=== PATIENT | female | born 1975 | race Asian ===

== ENCOUNTER 2019-02-27 08:40 | Outpatient (CLI) | payer OTHER ==
--- NOTE | 2019-02-27 09:22 | MMO ---
Bilateral MAMMO Bilat Screen [facility]. CLINICAL HISTORY: Patient is 43 years old and is seen for screening. The patient has a history of left Ultrasound Guided Core Biopsy in December, - benign. VIEWS: The views performed were: bilateral craniocaudal with tomosynthesis and bilateral mediolateral oblique with tomosynthesis. FILMS COMPARED: The present examination has been compared to prior imaging studies performed at [facility] on 12/11/2015, 12/15/2015 and 12/24/2015. MAMMOGRAM FINDINGS: The breasts are extremely dense, which may lower the sensitivity of mammography. Finding 1: There are stable calcifications seen in both breasts. Finding 2: There is a stable biopsy clip and a stable post operative change seen in the left breast. There are no suspicious masses, suspicious calcifications, or new areas of architectural distortion. IMPRESSION: THERE IS NO MAMMOGRAPHIC EVIDENCE OF MALIGNANCY. A ROUTINE FOLLOW-UP MAMMOGRAM IN 1 YEAR IS RECOMMENDED. THE RESULTS OF THIS EXAM WERE SENT TO THE PATIENT. ACR BI-RADS Category 2 - Benign finding MAMMOGRAPHY NOTE: 1. A negative mammogram report should not delay a biopsy if a dominant of clinically suspicious mass is present. 2. Approximately 10% to 15% of breast cancers are not detected by mammography. 3. Adenosis and dense breasts may obscure an underlying neoplasm.
== END 2019-02-27 08:41 | disposition home or self-care (01) ==
LOC: BICMAMMO 08:40
PROVIDERS: ATTEND Family Medicine
DX: Z12.31 Encounter for screening mammogram for malignant neoplasm of breast (principal)
CPT/HCPCS: 77063; 77067

== ENCOUNTER 2019-03-30 08:43 | Emergency (ER) | payer OTHER ==
[2019-03-30 10:02] LABS: HIV (1/2) Antibody/Antigen Non-Reactive (NonReactive); HIV 1/2 INDEX 0.19 S/CO (<1.00); Hep C IgG Ab Non-Reactive (NonReactive)
[2019-03-30 10:39] LABS: HBSAB Concentration 1631.97 mIU/mL
[2019-03-30 10:40] LABS: Hep B Surf AB Reactive (NonReactive)
== END 2019-03-30 09:43 | disposition home or self-care (01) ==
LOC: ERS 08:43
DX: S60.947A Unspecified superficial injury of left little finger, initial encounter (principal); Z77.21 Contact with and (suspected) exposure to potentially hazardous body fluids; W46.1XXA Contact with contaminated hypodermic needle, initial encounter
CPT/HCPCS: 36415; 86706; 86803; 87389; 99283

== ENCOUNTER 2020-11-10 13:13 | Emergency (ER) | payer OTHER ==
[~2020-11-10 13:13] MED LIST: Iopamidol-370 76% 500 ML 1 ML ONE
[2020-11-10] MEDS ORDERED: Acetaminophen 500 MG TAB ONE (14:27)
[2020-11-10 14:51] LABS: #Basophils 0.1 thou/uL (0.0-0.2); #Lymphocytes 0.5 thou/uL (1.20-3.40); #Monocytes 0.1 thou/uL (0.11-0.59); #Neutrophils 4.9 thou/uL (1.40-6.50); %Basophils 1.5 % (0.0-1.0); %Lymphocytes 8.7 % (21.0-51.0); %Monocytes 1.9 % (0.0-10.0); %Neutrophils 87.8 % (42.0-75.0); Mean Corpuscular HGB CONC 32.2 g/dL (32.0-36.0); Mean Corpuscular Hemoglobin 20.1 pg (27.0-31.0); Mean Corpuscular Volume 62.3 fL (78.0-98.0); Mean Platelet Volume 10.7 fL (7.4-10.4); Platelet Count 234 thou/uL (130-400); RBC Distribution Width 12.9 % (11.5-14.5); Red Blood Cell (RBC) Count 5.48 mill/uL (4.20-5.40); White Blood Cell (WBC) Count 5.6 thou/uL (4.8-10.8)
[2020-11-10 15:09] LABS: MDiff Complete? YES; Microcytosis MODERATE=15-30 cells (100X) (0-5/hpf); Ovalocytes SLIGHT = 2-5 cells (100X) (0-1/hpf); Platelet Morphology Comment Appears Adequate; Polychromasia SLIGHT = 2-3 cells (100X) (0-2/hpf); Reflex for Review?? NO; Schistocytes SLIGHT = 2-5 cells (100X) (0-1/hpf); Target Cells SLIGHT = 2-5 cells (100X) (0-1/hpf); Tear Drops SLIGHT = 2-5 cells (100X) (0-1/hpf)
[2020-11-10 15:10] LABS: ALT (SGPT) 20 U/L (8-55); AST (SGOT) 33 U/L (5-34); Albumin 3.6 g/dL (3.5-5.0); Alkaline Phosphatase 61 U/L (40-110); Anion Gap 15 mmol/L (10-20); BUN (Urea Nitrogen) 10 mg/dL (7.0-18.7); Bilirubin, Total 0.3 mg/dL (0.2-1.2); Calc. Creatinine Clearance 0 mL/min (70-130); Calcium 7.8 mg/dL (7.8-10.44); Carbon Dioxide 25 mmol/L (22-29); Chloride 102 mmol/L (98-107); Globulin 3.7 g/dL (2.4-3.5); Glucose 126 mg/dL (70-105); Potassium 3.5 mmol/L (3.5-5.1); Protein, Total 7.3 g/dL (6.0-8.3); Sodium 138 mmol/L (136-145)
--- NOTE | 2020-11-10 15:10 | RAD ---
CHEST 1 VIEW: Date: 11/10/2020 HISTORY: COVID-positive, worsening shortness of breath, headache. COMPARISON: 11/09/2020. FINDINGS: There are persistent patchy bilateral alveolar, interstitial, and ground-glass opacity changes, somew hat more focally prominent in the perihilar regions, right greater than left. Evidence for bilateral COVID pneumonia. No significant pleural effusion. No cardiomegaly. IMPRESSION: Persistent possibly slightly more confluent parenchymal changes in the perihilar regions, somewhat mo re focally prominent in the right perihilar region. Continue short-term follow-up. POS: RRE
[2020-11-10 16:19] LABS: BHCG - Serum Negative (NEGATIVE); Pregs Control Background? CLEAR/WHITE (CLR/WHITE); Pregs Control Bar Appear? YES (CONTROL BAR)
--- NOTE | 2020-11-10 17:05 | CT ---
CTA Angio Chest W WO Con 11/10/2020 4:45 PM Indication: History of Covid positive diagnosis with cough and fever Technique: Multiple CTA images were obtained of the thorax with IV contrast. 3-D rendering: MIP cameron nstructed images were created and reviewed. Comparison: No relevant prior studies available. Findings: Pulmonary arteries: Respiratory motion artifact slightly limits image detail. No definite central or segmental pulmonary embolus is evident. Heart and Aorta: Heart size is normal. There is an aberrant right subclavian artery. Mediastinum:Normal appearing. No enlarged lymph nodes. Lungs:There are prominent areas of patchy airspace consolidation within both lungs suspicious for mul tifocal pneumonia. This is most prominent within the posterior medial right lower lobe. Pleural space: Clear. Upper Abdomen: No acute abnormality. Osseous Structures: No acute osseous abnormality. Soft tissues:No abnormality. Other findings:None. Impression: 1. No central or segmental pulmonary embolus. 2. Multifocal pneumonia.
[2020-11-10] MEDS ORDERED: Ondansetron PF 4 MG/2 ML Vial ONE (17:16)
--- NOTE | 2020-11-29 16:13 | EKG ---
Test Reason : Blood Pressure : / mmHG Vent. Rate : 092 BPM Atrial Rate : 092 BPM P-R Int : 142 ms QRS Dur : 086 ms QT Int : 356 ms P-R-T Axes : 039 027 -06 degrees QTc Int : 440 ms Normal sinus rhythm Cannot rule out Anterior infarct , age undetermined Abnormal ECG Confirmed by TIANNA GARDINER DO ([id number]), story editor JAREK LU ([id number]) on 11/29/2020 4:13:17 PM Referred By: Confirmed By:TIANNA GARDINER DO
== END 2020-11-10 17:45 | disposition home or self-care (01) ==
LOC: ERS 13:13
DX: U07.1 COVID-19 (principal); D64.9 Anemia, unspecified
CPT/HCPCS: 36415; 71045; 71275; 80053; 84484; 84703; 85025; 85379; 93005; 96374; J2405; Q9967

== ENCOUNTER 2021-10-01 08:20 | Outpatient (CLI) | payer OTHER | END 2021-10-01 08:21 | disposition home or self-care (01) | LOC: BICMAMMO 08:20 | PROVIDERS: ATTEND Family Medicine | DX: Z12.31 Encounter for screening mammogram for malignant neoplasm of breast (principal); Z91.89 Other specified personal risk factors, not elsewhere classified | CPT/HCPCS: 77063; 77067 ==

== ENCOUNTER 2024-03-06 04:39 | Inpatient (IN) | payer BC ==
[2024-03-06] MEDS ORDERED: Morphine 4 MG/ML VIAL ONE (05:00)
[2024-03-06] MEDS ORDERED: Ondansetron PF 4 MG/2 ML Vial ONE (05:00)
[2024-03-06 05:20] LABS: #Basophils 0.06 10x3/uL (0.0-0.2); %Basophils 0.5 % (0.0-1.0); %Eosinophils 0.5 % (0.0-10.0); %Lymphocytes 13.4 % (21.0-51.0); %Monocytes 2.9 % (0.0-10.0); %Neutrophils 82.3 % (42.0-75.0); Hematocrit 33.9 % (36.0-47.0); Hemoglobin 10.8 g/dL (12.0-16.0); Mean Corpuscular HGB CONC 31.9 g/dL (32.0-36.0); Mean Corpuscular Hemoglobin 20.4 pg (27.0-31.0); Mean Corpuscular Volume 64.1 fL (78.0-98.0); Platelet Count 252 10x3/uL (130-400); RBC Distribution Width 15.3 % (11.5-14.5); Red Blood Cell (RBC) Count 5.29 mill/uL (4.20-5.40)
[2024-03-06 05:25] LABS: BHCG - Serum Negative (NEGATIVE); Pregs Control Background? CLEAR/WHITE (CLR/WHITE); Pregs Control Bar Appear? YES (CONTROL BAR)
[2024-03-06 05:37] LABS: Troponin I Less than 0.010 ng/mL (< 0.028)
[2024-03-06 05:39] LABS: ALT (SGPT) 13 U/L (8-55); AST (SGOT) 15 U/L (5-34); Albumin 3.8 g/dL (3.5-5.0); Alkaline Phosphatase 53 U/L (40-110); Anion Gap 15 mmol/L (10-20); BUN (Urea Nitrogen) 20 mg/dL (7.0-18.7); Bilirubin, Total 0.4 mg/dL (0.2-1.2); Calc. Creatinine Clearance 0 mL/min (70-130); Calcium 8.8 mg/dL (7.8-10.44); Carbon Dioxide 24 mmol/L (22-29); Chloride 105 mmol/L (98-107); Estimated GFR 83; Globulin 3.7 g/dL (2.4-3.5); Glucose 153 mg/dL (70-105); Lipase 36 U/L (8-78); Magnesium 1.8 mg/dL (1.6-2.6); Potassium 3.6 mmol/L (3.5-5.1); Protein, Total 7.5 g/dL (6.0-8.3); Sodium 140 mmol/L (136-145)
[2024-03-06] MEDS ORDERED: fentaNYL 50 mcg/mL 1 mL Vial ONE (06:23)
[2024-03-06] MEDS ORDERED: Ketorolac Tromethamine 30 MG (1 mL) VIAL ONE (06:52)
[2024-03-06] MEDS ORDERED: HYDROmorphone 0.5 MG/0.5 ML SYRINGE ONE (06:56)
[2024-03-06 07:24] LABS: Bilirubin Negative (Negative); Blood, Urine Large (Negative); Glucose, Urine (Dipstick) Negative (Negative); Ketone, Urine Negative (Negative); Leukocyte Trace (Negative); Nitrite Negative (Negative); Protein, Urine (Dipstick) Negative (Neg-Trace); Urobilinogen 0.2 mg/dL (Less than 2); pH, Urine 7.5 (5.0-9.0)
[2024-03-06 07:30] LABS: Bacteria/HPF None Seen HPF (None Seen)
[2024-03-06 07:33] LABS: Clarity Clear (Clear)
[2024-03-06 07:35] LABS: Urine Culture Reflex No No
[2024-03-06] MEDS ORDERED: Morphine 4 MG/ML VIAL SLOW IVP PRN (08:25)
[2024-03-06] MEDS ORDERED: Acetaminophen 650 MG Suppository PR PRN (08:29)
[2024-03-06] MEDS: Lactated Ringer's 1,000 ML IV SCH (08:35)
[2024-03-06] MEDS ORDERED: Ketorolac Tromethamine 30 MG (1 mL) VIAL IVP PRN (09:28)
[2024-03-06] MEDS: Tamsulosin HCl 0.4 MG CAP PO SCH (10:17)
[2024-03-06] MEDS ORDERED: Iopamidol-370 76% 500 ML MDV (1 ML CHARGE) ONE (10:49)
[2024-03-06] MEDS: Ondansetron PF 4 MG/2 ML Vial IVP PRN (11:06)
[2024-03-06] MEDS: Morphine 2 MG/ML VIAL SLOW IVP PRN (11:06)
[2024-03-06] MEDS ORDERED: HYDROcodone/Acetaminophen 5/325 mg Tablet PO PRN ×2 (13:24)
[2024-03-06] MEDS: Acetaminophen 325 MG TAB PO PRN (14:00)
[2024-03-06] MEDS: cefTRIAXone\\ROCEPHIN 1 GM in Sodium Chloride 0.9% 100 ML IVPB SCH (14:01)
[2024-03-06] MEDS: Metoclopramide HCl 10 MG (2 mL) VIAL IVP SCH (16:42)
[2024-03-06] MEDS: Sodium Chloride 0.9% 1,000 ML IV SCH ×2 (21:17→22:30)
[2024-03-06 21:42] LABS: Hematocrit 29.6 % (36.0-47.0); Hemoglobin 9.2 g/dL (12.0-16.0); Mean Corpuscular HGB CONC 31.1 g/dL (32.0-36.0); Mean Corpuscular Hemoglobin 20.3 pg (27.0-31.0); Mean Corpuscular Volume 65.3 fL (78.0-98.0); Mean Platelet Volume 10.7 fL (7.4-10.4); Platelet Count 138 10x3/uL (130-400); RBC Distribution Width 15.3 % (11.5-14.5); Red Blood Cell (RBC) Count 4.53 mill/uL (4.20-5.40)
[2024-03-06 21:55] LABS: Anion Gap 17 mmol/L (10-20); BUN (Urea Nitrogen) 19 mg/dL (7.0-18.7); Calc. Creatinine Clearance 58 mL/min (70-130); Calcium 7.8 mg/dL (7.8-10.44); Carbon Dioxide 18 mmol/L (22-29); Chloride 105 mmol/L (98-107); Estimated GFR 46; Glucose 115 mg/dL (70-105); Magnesium 1.2 mg/dL (1.6-2.6); Potassium 3.4 mmol/L (3.5-5.1); Sodium 137 mmol/L (136-145)
[2024-03-06] MEDS ORDERED: Potassium Chloride 20 MEQ TAB PO SCH (22:15)
[2024-03-06] MEDS ORDERED: Magnesium Sulfate 4 GM in Sodium Chloride 0.9% 250 ML 250 ML IVPB SCH (22:15)
[2024-03-06 22:27] LABS: Anisocytosis SLIGHT = 6-15 cells HPF (0-5); Band 26 % (5-11); Hypochromia SLIGHT = 6-15 cells HPF (0-5); Large Platelets 2.4 % (0-5); Lymphocytes 2 % (21-51); Metamyelocyte 5 % (0-0); Microcytosis SLIGHT = 6-15 cells HPF (0-5); Neutrophil 66 % (42-75); Ovalocytes SLIGHT = 2-5 cells HPF (0-1); Platelet Adequacy Comment Platelets Normal; Polychromasia MODERATE = 3-4 cells HPF (0-2); Smudge Cells 2.9 %; Vacuoles SLIGHT
[2024-03-06] MEDS: Magnesium Sulfate In Water 4 GM in Premix 1 BAG IVPB SCH (22:29)
[2024-03-06] MEDS ORDERED: Meropenem 1 GM in Sodium Chloride 0.9% 100 ML IVPB SCH (22:30)
[2024-03-06] MEDS: Meropenem 1 GM in Sodium Chloride 0.9% 100 ML IVPB SCH (22:30)
[2024-03-06] MEDS: Potassium Chloride 20 MEQ in Premix 1 BAG IVPB SCH (22:30)
[2024-03-06] MEDS ORDERED: SUCCINYLCHOLINE/SOD CL,ISO/PF 200 MG/10 ML SYRINGE FS ONE (23:45)
[2024-03-06] MEDS ORDERED: PROPOFOL 0 ML ONE (23:45)
[2024-03-06] MEDS ORDERED: Lidocaine 2% PF 5 ML VIAL ONE (23:45)
[2024-03-07] MEDS ORDERED: Famotidine/PF 20 mg/2ml Vial ONE (00:04)
[2024-03-07] MEDS ORDERED: Etomidate 40 MG (20 mL) VIAL ONE (00:10)
[2024-03-07] MEDS ORDERED: fentaNYL 50 mcg/mL 1 mL Vial ONE (00:12)
[2024-03-07] MEDS ORDERED: Iopamidol 30 ML ONE (00:21)
[2024-03-07] MEDS ORDERED: Albumin 5% 500 ML ONE (00:29)
[2024-03-07] MEDS ORDERED: PHENYLEPHRINE-NS 100 MCG/ML 10 ML SYRINGE ONE (00:29)
[2024-03-07] MEDS ORDERED: ePHEDrine Sulfate 50 MG/10 ML VIAL ONE (00:37)
[2024-03-07 00:41] LABS: Lactic Acid 6.2 mmol/L (0.5-2.2)
[2024-03-07] MEDS ORDERED: Ondansetron PF 4 MG/2 ML Vial ONE (02:05)
[2024-03-07] MEDS ORDERED: Electrolyte Replacement Protocol FS SCH (02:30)
[2024-03-07] MEDS: Metoclopramide HCl 10 MG (2 mL) VIAL IVP PRN (03:04)
[2024-03-07 03:39] LABS: Hematocrit 27.7 % (36.0-47.0); Hemoglobin 8.7 g/dL (12.0-16.0); Mean Corpuscular HGB CONC 31.4 g/dL (32.0-36.0); Mean Corpuscular Hemoglobin 19.9 pg (27.0-31.0); Mean Corpuscular Volume 63.2 fL (78.0-98.0); Mean Platelet Volume 10.6 fL (7.4-10.4); Platelet Count 111 10x3/uL (130-400); RBC Distribution Width 15.2 % (11.5-14.5); Red Blood Cell (RBC) Count 4.38 mill/uL (4.20-5.40)
[2024-03-07 04:00] LABS: Lactic Acid 4.6 mmol/L (0.5-2.2)
[2024-03-07 04:03] LABS: ALT (SGPT) 16 U/L (8-55); AST (SGOT) 21 U/L (5-34); Albumin 3.3 g/dL (3.5-5.0); Alkaline Phosphatase 55 U/L (40-110); Anion Gap 15 mmol/L (10-20); BUN (Urea Nitrogen) 18 mg/dL (7.0-18.7); Bilirubin, Total 1.5 mg/dL (0.2-1.2); Calc. Creatinine Clearance 86 mL/min (70-130); Calcium 7.5 mg/dL (7.8-10.44); Carbon Dioxide 15 mmol/L (22-29); Chloride 109 mmol/L (98-107); Estimated GFR 73; Globulin 2.9 g/dL (2.4-3.5); Glucose 141 mg/dL (70-105); Potassium 4.3 mmol/L (3.5-5.1); Protein, Total 6.2 g/dL (6.0-8.3); Sodium 135 mmol/L (136-145)
[2024-03-07 04:11] LABS: Anisocytosis SLIGHT = 6-15 cells HPF (0-5); Band 33 % (5-11); Hypochromia SLIGHT = 6-15 cells HPF (0-5); Lymphocytes 3 % (21-51); Metamyelocyte 3 % (0-0); Microcytosis SLIGHT = 6-15 cells HPF (0-5); Neutrophil 61 % (42-75); Ovalocytes SLIGHT = 2-5 cells HPF (0-1); Platelet Adequacy Comment Platelets Decreased; Polychromasia MODERATE = 3-4 cells HPF (0-2); Vacuoles SLIGHT
[2024-03-07] MEDS: Meropenem 1 GM in Sodium Chloride 0.9% 100 ML IVPB SCH ×2 (05:27→13:37)
[2024-03-07] MEDS: Sodium Bicarb 50 MEQ/50 ML Abboject 8.4% SYRINGE IVP SCH (05:29)
[2024-03-07] MEDS ORDERED: Meropenem 1 GM in Sodium Chloride 0.9% 100 ML IVPB SCH (06:00)
[2024-03-07 08:11] LABS: Lactic Acid 4.3 mmol/L (0.5-2.2)
[2024-03-07] MEDS: Ondansetron PF 4 MG/2 ML Vial IVP SCH (09:04)
[2024-03-07] MEDS: Tamsulosin HCl 0.4 MG CAP PO SCH (09:04)
[2024-03-07] MEDS: Pantoprazole 40 MG VIAL IVP SCH (09:04)
[2024-03-07] MEDS: Lactated Ringer's 1,000 ML IV SCH (09:40)
[2024-03-07] MEDS: Ketorolac Tromethamine 30 MG (1 mL) VIAL IVP SCH (09:41)
[2024-03-07] MEDS: Promethazine HCl 12.5 MG in Sodium Chloride 0.9% 50 ML IVPB SCH (11:53)
[2024-03-07] MEDS: Scopolamine 1 mg/72 hour Patch TD SCH (11:54)
[2024-03-08 04:21] LABS: Hematocrit 27.1 % (36.0-47.0); Hemoglobin 8.6 g/dL (12.0-16.0); Lactic Acid 1.9 mmol/L (0.5-2.2); Mean Corpuscular HGB CONC 31.7 g/dL (32.0-36.0); Mean Corpuscular Hemoglobin 20.4 pg (27.0-31.0); Mean Corpuscular Volume 64.2 fL (78.0-98.0); Mean Platelet Volume 10.5 fL (7.4-10.4); Platelet Count 107 10x3/uL (130-400); RBC Distribution Width 15.4 % (11.5-14.5); Red Blood Cell (RBC) Count 4.22 mill/uL (4.20-5.40)
[2024-03-08 04:25] LABS: ALT (SGPT) 25 U/L (8-55); AST (SGOT) 27 U/L (5-34); Albumin 2.9 g/dL (3.5-5.0); Alkaline Phosphatase 88 U/L (40-110); Anion Gap 14 mmol/L (10-20); BUN (Urea Nitrogen) 18 mg/dL (7.0-18.7); Bilirubin, Total 0.7 mg/dL (0.2-1.2); Calc. Creatinine Clearance 138 mL/min (70-130); Calcium 8.1 mg/dL (7.8-10.44); Carbon Dioxide 18 mmol/L (22-29); Chloride 110 mmol/L (98-107); Estimated GFR 109; Globulin 3.2 g/dL (2.4-3.5); Glucose 95 mg/dL (70-105); Magnesium 2.5 mg/dL (1.6-2.6); Potassium 3.8 mmol/L (3.5-5.1); Protein, Total 6.1 g/dL (6.0-8.3); Sodium 138 mmol/L (136-145)
[2024-03-08 04:50] LABS: Anisocytosis SLIGHT = 6-15 cells HPF (0-5); Band 46 % (5-11); Hypochromia SLIGHT = 6-15 cells HPF (0-5); Lymphocytes 2 % (21-51); Microcytosis SLIGHT = 6-15 cells HPF (0-5); Monocytes 2 % (0-10); Neutrophil 51 % (42-75); Platelet Adequacy Comment Platelets Decreased; Polychromasia SLIGHT = 2-3 cells HPF (0-2); Target Cells SLIGHT = 2-5 cells HPF (0-1)
[2024-03-09 08:30] LABS: Hematocrit 27.3 % (36.0-47.0); Hemoglobin 8.8 g/dL (12.0-16.0); Mean Corpuscular HGB CONC 32.2 g/dL (32.0-36.0); Mean Corpuscular Hemoglobin 20.4 pg (27.0-31.0); Mean Corpuscular Volume 63.2 fL (78.0-98.0); Platelet Count 141 10x3/uL (130-400); Red Blood Cell (RBC) Count 4.32 mill/uL (4.20-5.40)
[2024-03-09 08:34] LABS: Anion Gap 11 mmol/L (10-20); BUN (Urea Nitrogen) 19 mg/dL (7.0-18.7); Calc. Creatinine Clearance 133 mL/min (70-130); Calcium 8.3 mg/dL (7.8-10.44); Carbon Dioxide 24 mmol/L (22-29); Chloride 108 mmol/L (98-107); Estimated GFR 108; Glucose 108 mg/dL (70-105); Potassium 3.6 mmol/L (3.5-5.1); Sodium 139 mmol/L (136-145)
[2024-03-09 09:26] LABS: Band 12 % (5-11); Hypochromia SLIGHT = 6-15 cells HPF (0-5); Lymphocytes 2 % (21-51); Monocytes 2 % (0-10); Neutrophil 83 % (42-75); Platelet Adequacy Comment Platelets Normal; Polychromasia SLIGHT = 2-3 cells HPF (0-2); Reactive Lymphocytes 1 % (0-10); Schistocytes SLIGHT = 2-5 cells HPF (0-1); Target Cells SLIGHT = 2-5 cells HPF (0-1)
[2024-03-09] MEDS: SUMAtriptan Succinate 50 MG TAB PO PRN (11:34)
[2024-03-09] MEDS: Melatonin 3 MG TAB PO PRN (21:18)
[2024-03-10] MEDS: Fish Oil 1,000 MG CAP PO SCH (08:36)
[2024-03-10] MEDS: Prenatal Vitamin 1 TAB PO SCH (08:36)
[2024-03-10] MEDS ORDERED: VIT K2 PO SCH (09:00)
[2024-03-10] MEDS ORDERED: VIT C PO SCH (09:00)
[2024-03-10] MEDS ORDERED: ROSE PO SCH (09:00)
[2024-03-10] MEDS ORDERED: [UNRECOGNIZED DRUG - OTHER] PO SCH (09:00)
[2024-03-10] MEDS ORDERED: Non-Formulary Item 1 EACH (Zinc Sulfate [Zinc] 50 MG Tablet) PO SCH (09:00)
[2024-03-10] MEDS ORDERED: Non-Formulary Item 1 EACH (Magnesium Glycinate [Mag Glycinate] 100 MG Tablet) PO SCH (09:00)
[2024-03-10] MEDS ORDERED: [UNRECOGNIZED DRUG - OTHER] PO SCH (09:00)
[2024-03-10] MEDS ORDERED: VIT E PO SCH (09:00)
[2024-03-10] MEDS ORDERED: RUTIN PO SCH (09:00)
[2024-03-10] MEDS ORDERED: [UNRECOGNIZED DRUG - OTHER] PO SCH (09:00)
[2024-03-10] MEDS ORDERED: [UNRECOGNIZED DRUG - OTHER] PO SCH (09:00)
[2024-03-10] MEDS ORDERED: CHOLECALCIFEROL PO SCH (09:00)
[2024-03-10 11:04] LABS: Hematocrit 30.1 % (36.0-47.0); Hemoglobin 9.6 g/dL (12.0-16.0); Mean Corpuscular HGB CONC 31.9 g/dL (32.0-36.0); Mean Corpuscular Hemoglobin 19.7 pg (27.0-31.0); Mean Corpuscular Volume 61.8 fL (78.0-98.0); Mean Platelet Volume 11.3 fL (7.4-10.4); Platelet Count 187 10x3/uL (130-400); RBC Distribution Width 14.9 % (11.5-14.5); Red Blood Cell (RBC) Count 4.87 mill/uL (4.20-5.40)
[2024-03-10 11:29] LABS: Band 6 % (5-11); Dohle Bodies SLIGHT; Eosinophils 2 % (0-10); Hypochromia SLIGHT = 6-15 cells HPF (0-5); Lymphocytes 6 % (21-51); Microcytosis SLIGHT = 6-15 cells HPF (0-5); Monocytes 10 % (0-10); Myelocyte 4 % (0-0); Neutrophil 70 % (42-75); Platelet Adequacy Comment Platelets Normal; Polychromasia SLIGHT = 2-3 cells HPF (0-2); Schistocytes SLIGHT = 2-5 cells HPF (0-1); Target Cells SLIGHT = 2-5 cells HPF (0-1); Toxic Granulation SLIGHT; Vacuoles SLIGHT
[2024-03-11 01:01] VITALS: BMI 29.8
[2024-03-11 05:57] LABS: Hematocrit 29.4 % (36.0-47.0); Hemoglobin 9.5 g/dL (12.0-16.0); Mean Corpuscular HGB CONC 32.3 g/dL (32.0-36.0); Mean Corpuscular Hemoglobin 20.1 pg (27.0-31.0); Mean Corpuscular Volume 62.3 fL (78.0-98.0); Mean Platelet Volume 10.6 fL (7.4-10.4); Platelet Count 189 10x3/uL (130-400); RBC Distribution Width 14.7 % (11.5-14.5); Red Blood Cell (RBC) Count 4.72 mill/uL (4.20-5.40)
[2024-03-11 06:05] LABS: Anion Gap 13 mmol/L (10-20); BUN (Urea Nitrogen) 10 mg/dL (7.0-18.7); Calc. Creatinine Clearance 141 mL/min (70-130); Calcium 8.7 mg/dL (7.8-10.44); Carbon Dioxide 26 mmol/L (22-29); Chloride 104 mmol/L (98-107); Estimated GFR 111; Glucose 96 mg/dL (70-105); Potassium 3.6 mmol/L (3.5-5.1); Sodium 139 mmol/L (136-145)
[2024-03-11 06:29] LABS: Band 4 % (5-11); Eosinophils 2 % (0-10); Hypochromia SLIGHT = 6-15 cells HPF (0-5); Large Platelets 5.8 % (0-5); Lymphocytes 7 % (21-51); Microcytosis MODERATE=15-30 cells HPF (0-5); Monocytes 6 % (0-10); Myelocyte 8 % (0-0); Neutrophil 70 % (42-75); Nucleated RBC (Manual Ct) 1 % (0); Platelet Adequacy Comment Platelets Normal; Polychromasia SLIGHT = 2-3 cells HPF (0-2); Reactive Lymphocytes 4 % (0-10); Smudge Cells 15.5 %; Target Cells SLIGHT = 2-5 cells HPF (0-1)
[2024-03-11 09:11] VITALS: TEMP 98.4
[2024-03-11 09:31] VITALS: BP 117/74
== END 2024-03-11 10:53 | disposition home or self-care (01) | DRG 853 ==
LOC: ERS 04:39 → T4-B 08:04 → CCU 03-07 02:34 → T4-B 03-09 09:45
PROVIDERS: ADMIT Family Medicine; ATTEND Hospitalist
PROC: 3E03329 Introduction of Other Anti-infective into Peripheral Vein, Percutaneous Approach (ICD-10-PCS; principal; 2024-03-06)
PROC: 30233J1 Transfusion of Nonautologous Serum Albumin into Peripheral Vein, Percutaneous Approach (ICD-10-PCS; 2024-03-07)
PROC: 0T778DZ Dilation of Left Ureter with Intraluminal Device, Via Natural or Artificial Opening Endoscopic (ICD-10-PCS; 2024-03-07)
DX: A41.1 Sepsis due to other specified staphylococcus (principal); J96.01 Acute respiratory failure with hypoxia; R65.21 Severe sepsis with septic shock; N20.2 Calculus of kidney with calculus of ureter; E87.21 Acute metabolic acidosis; N17.9 Acute kidney failure, unspecified; N39.0 Urinary tract infection, site not specified; G43.909 Migraine, unspecified, not intractable, without status migrainosus; D56.3 Thalassemia minor; I95.9 Hypotension, unspecified; E87.6 Hypokalemia; E83.42 Hypomagnesemia; D69.6 Thrombocytopenia, unspecified; D50.9 Iron deficiency anemia, unspecified; Z98.890 Other specified postprocedural states
CPT/HCPCS: 36415; 71045; 74177; 74420; 80048; 80053; 81001; 83605; 83690; 83735; 83880; 84484; 84703; 85025; 87040; 87077; 87086; 87149; 93005; 96374; 96375; C2617; C9113; J0696; J1170; J1885; J2001; J2185; J2270; J2272; J2405; J2550; J2704; J2765; J3010; J3475; J3480; J3490; J7050; J7120; P9045; Q9967; S0028

== ENCOUNTER 2024-03-23 13:06 | Outpatient (CLI) | payer BC ==
[2024-03-23 15:26] LABS: Bilirubin Neg (Negative); Blood, Urine 150 (Negative); Clarity Clear (Clear); Glucose, Urine (Dipstick) Normal (Negative); Ketone, Urine Negative (Negative); Leukocyte 500 (Negative); Nitrite Negative (Negative); Protein, Urine (Dipstick) 30 mg/dl (Neg-Trace); Specific Gravity, Urine 1.005 (1.005-1.030); Urobilinogen Normal mg/dL (Less than 2)
[2024-03-23 15:40] LABS: PTT 28.2 sec (22.0-33.0); Prothrombin Time 10.8 sec (9.5-12.1)
[2024-03-23 15:42] LABS: RBC/HPF 21-50 HPF (0-3)
[2024-03-23 15:43] LABS: Bacteria/HPF 1+ HPF (None Seen)
[2024-03-23 15:46] LABS: Anion Gap 15 mmol/L (10-20); BUN (Urea Nitrogen) 9 mg/dL (7.0-18.7); Calc. Creatinine Clearance 0 mL/min (70-130); Calcium 9.7 mg/dL (7.8-10.44); Carbon Dioxide 26 mmol/L (22-29); Chloride 102 mmol/L (98-107); Estimated GFR 108; Glucose 76 mg/dL (70-105); Potassium 4.1 mmol/L (3.5-5.1); Sodium 139 mmol/L (136-145)
[2024-03-23 15:53] LABS: Hematocrit 33.4 % (34.9-44.5); Hemoglobin 10.5 g/dL (12.0-15.5); Mean Corpuscular HGB CONC 31.4 g/dL (32.0-36.0); Mean Corpuscular Volume 63.5 fL (81.6-98.3); Mean Platelet Volume 10.4 fL (7.4-10.4); Platelet Count 619 10x3/uL (150-450); RBC Distribution Width 15.5 % (11.5-14.5); Red Blood Cell (RBC) Count 5.26 10x6/uL (3.90-5.03); White Blood Cell (WBC) Count 6.9 10x3/uL (3.5-10.5)
[2024-03-23 16:07] LABS: BHCG - Serum Negative (NEGATIVE); Pregs Control Background? CLEAR/WHITE (CLR/WHITE); Pregs Control Bar Appear? YES (CONTROL BAR)
== END 2024-03-23 13:07 | disposition home or self-care (01) ==
LOC: LABBT 13:06
PROVIDERS: ATTEND Urology
DX: Z01.818 Encounter for other preprocedural examination (principal); N20.1 Calculus of ureter
CPT/HCPCS: 80048; 81001; 84703; 85027; 85610; 85730; 87086; 93005; 93010

== ENCOUNTER 2024-04-06 07:12 | Day surgery (SDC) | payer BC ==
[2024-03-23 13:28] VITALS: BMI 28.8
[2024-04-06] MEDS ORDERED: Dexamethasone 4 mg/ml Vial ONE (08:38)
[2024-04-06] MEDS ORDERED: Ondansetron PF 4 MG/2 ML Vial ONE (08:38)
[2024-04-06] MEDS ORDERED: PROPOFOL 40 ML ONE (08:38)
[2024-04-06] MEDS ORDERED: Lidocaine 1% PF 5 ML VIAL ONE (08:38)
[2024-04-06] MEDS ORDERED: fentaNYL PF 100 MCG/2 ML SYRINGE ONE (08:38)
[2024-04-06] MEDS ORDERED: Iopamidol 0 ML ONE (09:25)
[2024-04-06] MEDS ORDERED: LevoFLOXacin D5W 500 mg (100 mL) BAG ONE (09:42)
[2024-04-06] MEDS ORDERED: ePHEDrine Sulfate 50 MG/10 ML VIAL ONE (10:07)
[2024-04-06] MEDS ORDERED: Ketorolac Tromethamine 30 MG (1 mL) VIAL ONE (10:33)
[2024-04-06] MEDS ORDERED: Phenazopyridine HCl 100 MG TAB ONE (11:30)
[2024-04-06] MEDS ORDERED: Oxybutynin 5 MG TAB ONE (11:31)
== END 2024-04-06 12:35 | disposition home or self-care (01) ==
LOC: SDC 07:12
PROVIDERS: ATTEND Urology
PROC: 0TC48ZZ Extirpation of Matter from Left Kidney Pelvis, Via Natural or Artificial Opening Endoscopic (ICD-10-PCS; principal; 2024-04-06)
PROC: 0T778DZ Dilation of Left Ureter with Intraluminal Device, Via Natural or Artificial Opening Endoscopic (ICD-10-PCS; principal; 2024-04-06)
DX: N20.2 Calculus of kidney with calculus of ureter (principal); D56.3 Thalassemia minor; G43.909 Migraine, unspecified, not intractable, without status migrainosus; Z87.442 Personal history of urinary calculi; Z79.899 Other long term (current) drug therapy
CPT/HCPCS: 74420; 82365; 88300; C1713; C1747; C1769; C2617; J1100; J1885; J1956; J2405; J2704; Q9967

== ENCOUNTER 2024-07-12 08:11 | Outpatient (CLI) | payer BC | END 2024-07-12 08:12 | disposition home or self-care (01) | LOC: BICULT 08:11 | PROVIDERS: ATTEND Urology | DX: N20.0 Calculus of kidney (principal) | CPT/HCPCS: 76770 ==